=== PATIENT | female | born 1930 | race Caucasian/White ===

== ENCOUNTER 2017-01-21 22:23 | Inpatient (IN) ==
[2017-01-21] MEDS ORDERED: METOPROLOL TARTRATE 25 MG TABLET PO STA (23:30)
[2017-01-22 00:10] LABS: Basophils # 0.1 10*3/uL (0.0-0.2); Basophils % 1.2 % (0.0-0.8); Eosinophils # 0.2 10*3/uL (0.0-0.87); Eosinophils % 2.6 % (0.00-10.9); Hemoglobin 12.4 GM/DL (12.0-16.0); Immature Granulocytes % 0.3 %; Immature Granulocytes Absolute 0.02 #; Lymphocytes # 1.8 10*3/uL (1.4-4.0); Lymphocytes % 26.2 % (21.3-54.2); Mean Corpuscular HGB Conc 34.4 GM/DL (32-36); Mean Corpuscular Hemoglobin 32 PG (27-34); Mean Corpuscular Volume 92.3 FL (87-102); Mean Platelet Volume 9.3 FL (9.6-12.0); Monocytes # 0.6 10*3/uL (0.11-0.8); Monocytes % 8.8 % (1.7-12.7); Neutrophils # 4.2 10*3/uL (1.4-7.4); Neutrophils % 60.9 % (38.7-73.9); Platelet Count 284 T/CUMM (130-400)
[2017-01-22 00:29] LABS: Troponin I Only 0.653 NG/ML (0.00-0.045)
[2017-01-22 00:35] LABS: Albumin 3.4 G/DL (3.4-5.0); Bilirubin,Total 0.4 MG/DL (0.2-1.0); Calcium 9.2 MG/DL (8.5-10.1); Free T4 (Free Thyroxine) 1.21 NG/DL (0.76-1.46); Osmolality,Calculated 283.3 MOS/KG (273-304); Potassium 3.6 MMOL/L (3.5-5.1); Thyroid Stimulating Hormone 4.18 uIU/ml (0.358-3.74); Total Protein 6.9 G/DL (6.4-8.3)
[2017-01-22] MEDS ORDERED: ASPIRIN 325 MG TABLET PO STA (01:17)
[2017-01-22] MEDS ORDERED: MAGNESIUM SULF RIDER 4 GM in PREMIX 1 EACH IV PRN (01:34)
[2017-01-22] MEDS ORDERED: MORPHINE 2 MG/1 ML SYRINGE IV PRN (01:34)
[2017-01-22] MEDS ORDERED: ONDANSETRON 4 MG/2 ML VIAL IV PRN (01:34)
[2017-01-22] MEDS ORDERED: POTASSIUM CHLORIDE 20 MEQ TABLET PO PRN (01:34)
[2017-01-22] MEDS ORDERED: SODIUM CHLORIDE 0.9% 1,000 ML IV SCH (01:34)
[2017-01-22] MEDS ORDERED: MAGNESIUM SULF RIDER 2 GM in PREMIX 1 EACH IV PRN (01:34)
[2017-01-22] MEDS ORDERED: ASPIRIN 325 MG TABLET ONE (01:55)
[2017-01-22 03:39] LABS: Basophils # 0.1 10*3/uL (0.0-0.2); Basophils % 0.9 % (0.0-0.8); Eosinophils # 0.2 10*3/uL (0.0-0.87); Eosinophils % 2.6 % (0.00-10.9); Hematocrit 36.2 VOL% (35.7-47.0); Hemoglobin 12.1 GM/DL (12.0-16.0); Immature Granulocytes % 0.4 %; Immature Granulocytes Absolute 0.03 #; Lymphocytes # 2.5 10*3/uL (1.4-4.0); Lymphocytes % 32.8 % (21.3-54.2); Mean Corpuscular HGB Conc 33.4 GM/DL (32-36); Mean Corpuscular Hemoglobin 31 PG (27-34); Mean Corpuscular Volume 93.1 FL (87-102); Mean Platelet Volume 9.8 FL (9.6-12.0); Monocytes # 0.8 10*3/uL (0.11-0.8); Monocytes % 10.3 % (1.7-12.7); Neutrophils # 4.1 10*3/uL (1.4-7.4); Platelet Count 328 T/CUMM (130-400); Red Blood Count 3.89 MC/CUMM (3.8-5.5); Red Cell Distribution Width 14.2 % (9.3-17.3); White Blood Count 7.7 T/CUMM (4-12)
[2017-01-22 04:07] LABS: Albumin 3.6 G/DL (3.4-5.0); Bilirubin,Total 0.6 MG/DL (0.2-1.0); Calcium 9.4 MG/DL (8.5-10.1); Magnesium 2.1 MG/DL (1.8-2.4); Osmolality,Calculated 282.3 MOS/KG (273-304); Potassium 4.1 MMOL/L (3.5-5.1); Risk Ratio 4.56
[2017-01-22] MEDS: NITROGLYCERIN 2% OINT 1 INCH/GM PACK TOP SCH ×3 (06:17→17:57)
[2017-01-22] MEDS ORDERED: cloNIDine 0.1 MG TABLET PO PRN (08:02)
[2017-01-22] MEDS ORDERED: CARVEDILOL 6.25 MG TABLET PO SCH (09:00)
[2017-01-22] MEDS: ASPIRIN EC 81 MG TABLET PO SCH (09:30)
[2017-01-22] MEDS: hydroCHLOROthiazide 12.5 MG CAPSULE PO SCH (09:30)
[2017-01-22] MEDS: hydrALAZINE 25 MG TABLET PO SCH (09:30)
[2017-01-22] MEDS: PANTOPRAZOLE 40 MG TABLET PO SCH (09:30)
[2017-01-22] MEDS: MULTIVITAMIN (CENTRUM) TABLET PO SCH (09:30)
[2017-01-22] MEDS: ENOXAPARIN 40 MG/0.4 ML SYRINGE SUBCUT SCH (09:31)
[2017-01-22] MEDS: cloNIDine 0.1 MG TABLET PO SCH ×2 (09:38→21:18)
[2017-01-22] MEDS ORDERED: ATORVASTATIN 20 MG TABLET PO SCH (21:00)
[2017-01-22] MEDS ORDERED: METOPROLOL TARTRATE 50 MG TABLET PO SCH (21:00)
[2017-01-22] MEDS: DOCUSATE SODIUM 100 MG CAPSULE PO SCH (21:18)
[2017-01-23] MEDS: NITROGLYCERIN 2% OINT 1 INCH/GM PACK TOP SCH ×4 (00:21→17:55)
[2017-01-23 03:52] LABS: Basophils # 0.1 10*3/uL (0.0-0.2); Basophils % 1.2 % (0.0-0.8); Eosinophils # 0.2 10*3/uL (0.0-0.87); Eosinophils % 3.6 % (0.00-10.9); Hematocrit 31.1 VOL% (35.7-47.0); Hemoglobin 10.7 GM/DL (12.0-16.0); Immature Granulocytes % 0.2 %; Immature Granulocytes Absolute 0.01 #; Lymphocytes # 2.5 10*3/uL (1.4-4.0); Lymphocytes % 44.6 % (21.3-54.2); Mean Corpuscular HGB Conc 34.4 GM/DL (32-36); Mean Corpuscular Hemoglobin 32 PG (27-34); Mean Corpuscular Volume 93.4 FL (87-102); Mean Platelet Volume 10.1 FL (9.6-12.0); Monocytes # 0.6 10*3/uL (0.11-0.8); Monocytes % 9.9 % (1.7-12.7); Neutrophils # 2.3 10*3/uL (1.4-7.4); Neutrophils % 40.5 % (38.7-73.9); Platelet Count 275 T/CUMM (130-400); Red Blood Count 3.33 MC/CUMM (3.8-5.5); Red Cell Distribution Width 14.3 % (9.3-17.3); White Blood Count 5.6 T/CUMM (4-12)
[2017-01-23 04:33] LABS: Calcium 8.8 MG/DL (8.5-10.1); Magnesium 2.1 MG/DL (1.8-2.4); Osmolality,Calculated 286.1 MOS/KG (273-304); Potassium 3.9 MMOL/L (3.5-5.1)
[2017-01-23 05:15] LABS: Risk Ratio 4.7; VLDL CHOLESTEROL 28.8 MG/DL
[2017-01-23] MEDS: LEVOTHYROXINE 25 MCG TABLET PO SCH (06:06)
[2017-01-23] MEDS ORDERED: METOPROLOL TARTRATE 25 MG TABLET PO SCH (09:00)
[2017-01-23] MEDS: hydroCHLOROthiazide 12.5 MG CAPSULE PO SCH (09:16)
[2017-01-23] MEDS: MULTIVITAMIN (CENTRUM) TABLET PO SCH (09:17)
[2017-01-23] MEDS: ASPIRIN EC 81 MG TABLET PO SCH (09:19)
[2017-01-23] MEDS: PANTOPRAZOLE 40 MG TABLET PO SCH (09:19)
[2017-01-23] MEDS: ENOXAPARIN 40 MG/0.4 ML SYRINGE SUBCUT SCH (09:19)
[2017-01-23] MEDS: hydrALAZINE 25 MG TABLET PO SCH (09:19)
[2017-01-23] MEDS ORDERED: ATORVASTATIN 20 MG TABLET PO SCH (09:20)
[2017-01-23] MEDS: cloNIDine 0.1 MG TABLET PO SCH ×2 (09:23→20:51)
[2017-01-23] MEDS: DOCUSATE SODIUM 100 MG CAPSULE PO SCH (20:49)
[2017-01-23] MEDS: METOPROLOL TARTRATE 25 MG TABLET PO SCH (20:51)
[2017-01-24] MEDS: NITROGLYCERIN 2% OINT 1 INCH/GM PACK TOP SCH ×3 (02:06→13:14)
[2017-01-24 05:10] LABS: Basophils # 0.1 10*3/uL (0.0-0.2); Basophils % 1.1 % (0.0-0.8); Eosinophils # 0.3 10*3/uL (0.0-0.87); Eosinophils % 4.2 % (0.00-10.9); Hematocrit 31.7 VOL% (35.7-47.0); Hemoglobin 10.7 GM/DL (12.0-16.0); Immature Granulocytes % 0.3 %; Immature Granulocytes Absolute 0.02 #; Lymphocytes # 2.8 10*3/uL (1.4-4.0); Lymphocytes % 45.4 % (21.3-54.2); Mean Corpuscular HGB Conc 33.8 GM/DL (32-36); Mean Corpuscular Hemoglobin 32 PG (27-34); Mean Corpuscular Volume 93.5 FL (87-102); Monocytes # 0.6 10*3/uL (0.11-0.8); Monocytes % 9.4 % (1.7-12.7); Neutrophils # 2.4 10*3/uL (1.4-7.4); Neutrophils % 39.6 % (38.7-73.9); Platelet Count 267 T/CUMM (130-400); Red Blood Count 3.39 MC/CUMM (3.8-5.5); Red Cell Distribution Width 14.4 % (9.3-17.3); White Blood Count 6.1 T/CUMM (4-12)
[2017-01-24 05:44] LABS: Calcium 8.6 MG/DL (8.5-10.1); Magnesium 2.3 MG/DL (1.8-2.4); Osmolality,Calculated 286.1 MOS/KG (273-304); Potassium 4.1 MMOL/L (3.5-5.1)
[2017-01-24] MEDS: LEVOTHYROXINE 25 MCG TABLET PO SCH (06:18)
[2017-01-24] MEDS: PANTOPRAZOLE 40 MG TABLET PO SCH (08:19)
[2017-01-24] MEDS: MULTIVITAMIN (CENTRUM) TABLET PO SCH (08:19)
[2017-01-24] MEDS: cloNIDine 0.1 MG TABLET PO SCH (08:19)
[2017-01-24] MEDS: METOPROLOL TARTRATE 25 MG TABLET PO SCH (08:19)
[2017-01-24] MEDS: ASPIRIN EC 81 MG TABLET PO SCH (08:20)
[2017-01-24] MEDS: ENOXAPARIN 40 MG/0.4 ML SYRINGE SUBCUT SCH (08:20)
[2017-01-24] MEDS: hydroCHLOROthiazide 12.5 MG CAPSULE PO SCH (08:20)
[2017-01-24 14:33] VITALS: BP 125/44
== END 2017-01-24 16:17 | disposition home or self-care (01) | DRG 305 ==
LOC: EDUNIT# → EDBD → N.ED 22:23 → N.TELEN 01-22 01:17
PROVIDERS: ADMIT Internal Medicine Interventional Cardiology; ATTEND Internal Medicine Interventional Cardiology

== ENCOUNTER 2018-08-21 18:20 | Inpatient (IN) ==
[2018-08-21] MEDS ORDERED: ONDANSETRON 4 MG/2 ML VIAL IV STA (21:11)
[2018-08-21] MEDS ORDERED: HYDROmorphone 2 MG/1 ML VIAL IV ONE (21:11)
[2018-08-21] MEDS ORDERED: SODIUM CHLORIDE 0.9% 1,000 ML IV SCH (21:30)
[2018-08-21 22:19] LABS: Basophils # 0.1 10*3/uL (0.0-0.2); Basophils % 0.4 % (0.0-0.8); Eosinophils % 0.4 % (0.00-10.9); Hemoglobin 12.5 GM/DL (12.0-16.0); Immature Granulocytes % 0.7 %; Immature Granulocytes Absolute 0.08 #; Lymphocytes # 1.6 10*3/uL (1.4-4.0); Lymphocytes % 14.3 % (21.3-54.2); Mean Corpuscular HGB Conc 32.9 GM/DL (32-36); Mean Corpuscular Volume 96.4 FL (87-102); Mean Platelet Volume 9.9 FL (9.6-12.0); Monocytes % 5.9 % (1.7-12.7); Neutrophils % 78.3 % (38.7-73.9); Platelet Count 211 T/CUMM (130-400); Red Blood Count 3.94 MC/CUMM (3.8-5.5); Red Cell Distribution Width 13.5 % (9.3-17.3); White Blood Count 11.2 T/CUMM (4-12)
[2018-08-21 22:20] LABS: Apearance,Urine CLEAR (Clear); Bacteria,Urine Occasional /HPF (Few); Bilirubin,Urine Negative (Negative); Blood, Urine Negative (Negative); Glucose,Urine (UA) Negative (Negative); Hyaline Casts,Urine 1 /LPF (0-3); Ketones,Urine Negative (Negative); Nitrite,Urine Positive (Negative); Protein,Urine Negative; RBC,Urine 1 /HPF (0-4); Squamous Epithelial Cell,Urine Occasional /HPF (0-10); Urine Color Yellow (Yellow); Urine Specific Gravity 1.014 (1.001-1.035); Urine Urobilinogen < 2.0 EU/DL (0.2-1.0); WBC,Urine 12 /HPF (0-6)
[2018-08-21 22:37] LABS: Albumin 3.9 G/DL (3.4-5.0); Bilirubin,Total 0.5 MG/DL (0.2-1.0); Osmolality,Calculated 287.3 MOS/KG (273-304); Total Protein 7.5 G/DL (6.4-8.3)
[2018-08-21] MEDS ORDERED: DOCUSATE SODIUM 100 MG CAPSULE PO SCH (23:35)
[2018-08-21] MEDS ORDERED: ONDANSETRON 4 MG/2 ML VIAL IV PRN (23:35)
[2018-08-21] MEDS ORDERED: HYDROmorphone 2 MG/1 ML VIAL IV PRN (23:35)
[2018-08-21] MEDS ORDERED: ACETAMINOPHEN 325 MG TABLET PO PRN (23:35)
[2018-08-22] MEDS: ATORVASTATIN 40 MG TABLET PO SCH ×2 (00:09→21:30)
[2018-08-22] MEDS: OLMESARTAN 20 MG TABLET PO SCH ×3 (00:09→21:29)
[2018-08-22] MEDS: ASPIRIN 325 MG TABLET PO SCH ×2 (00:09→21:29)
[2018-08-22] MEDS: cloNIDine 0.1 MG TABLET PO SCH ×3 (00:20→21:29)
[2018-08-22] MEDS: METOPROLOL TARTRATE 25 MG TABLET PO SCH ×3 (00:21→21:28)
[2018-08-22 06:56] LABS: Calcium 8.5 MG/DL (8.5-10.1)
[2018-08-22] MEDS: LEVOTHYROXINE 25 MCG TABLET PO SCH (07:30)
[2018-08-22] MEDS: MULTIVITAMIN (CENTRUM) TABLET PO SCH (08:58)
[2018-08-22] MEDS ORDERED: hydroCHLOROthiazide 25 MG TABLET PO SCH (09:00)
[2018-08-22] MEDS: LINACLOTIDE 145 MCG CAPSULE PO SCH (09:06)
[2018-08-22] MEDS: PANTOPRAZOLE 40 MG TABLET PO SCH (11:29)
[2018-08-22] MEDS ORDERED: SODIUM CHLORIDE 0.9% 1,000 ML IV SCH (11:30)
[2018-08-22] MEDS: CIPROFLOXACIN INJ 400 MG in PREMIX 1 EACH IV SCH (12:48)
[2018-08-22] MEDS ORDERED: ZIPRASIDONE 20 MG/1 ML VIAL IM PRN (13:46)
[2018-08-22] MEDS ORDERED: TUBERCULIN SKIN TEST 0.1 ML SYRINGE INTRADERM ONE (16:37)
[2018-08-22] MEDS ORDERED: LACTULOSE 20 GM/30 ML UDCUP PO PRN (18:15)
[2018-08-22] MEDS: MELATONIN 3 MG TABLET PO SCH (21:27)
[2018-08-22] MEDS: DOCUSATE/SENNA 50-8.6 MG TABLET PO SCH (21:27)
[2018-08-23] MEDS: CIPROFLOXACIN INJ 400 MG in PREMIX 1 EACH IV SCH ×2 (00:02→13:52)
[2018-08-23 05:27] LABS: Basophils # 0.1 10*3/uL (0.0-0.2); Basophils % 0.7 % (0.0-0.8); Eosinophils # 0.3 10*3/uL (0.0-0.87); Eosinophils % 4.1 % (0.00-10.9); Hematocrit 32.5 VOL% (35.7-47.0); Hemoglobin 10.4 GM/DL (12.0-16.0); Immature Granulocytes % 0.3 %; Immature Granulocytes Absolute 0.02 #; Lymphocytes # 1.7 10*3/uL (1.4-4.0); Lymphocytes % 24.6 % (21.3-54.2); Mean Corpuscular Volume 99.1 FL (87-102); Mean Platelet Volume 9.3 FL (9.6-12.0); Monocytes % 8.4 % (1.7-12.7); Neutrophils % 61.9 % (38.7-73.9); Platelet Count 201 T/CUMM (130-400); Red Blood Count 3.28 MC/CUMM (3.8-5.5); Red Cell Distribution Width 13.7 % (9.3-17.3)
[2018-08-23 05:47] LABS: Calcium 8.2 MG/DL (8.5-10.1); Osmolality,Calculated 283.3 MOS/KG (273-304)
[2018-08-23] MEDS: LEVOTHYROXINE 25 MCG TABLET PO SCH (05:59)
[2018-08-23] MEDS: LINACLOTIDE 145 MCG CAPSULE PO SCH (08:44)
[2018-08-23] MEDS: cloNIDine 0.1 MG TABLET PO SCH ×2 (08:44→20:37)
[2018-08-23] MEDS: MULTIVITAMIN (CENTRUM) TABLET PO SCH (08:44)
[2018-08-23] MEDS: OLMESARTAN 20 MG TABLET PO SCH ×2 (08:45→20:34)
[2018-08-23] MEDS: DOCUSATE/SENNA 50-8.6 MG TABLET PO SCH ×2 (08:45→20:34)
[2018-08-23] MEDS: METOPROLOL TARTRATE 25 MG TABLET PO SCH ×2 (08:46→20:34)
[2018-08-23] MEDS: PANTOPRAZOLE 40 MG TABLET PO SCH (12:07)
[2018-08-23] MEDS ORDERED: ONDANSETRON ODT 4 MG TABLET PO PRN (16:27)
[2018-08-23] MEDS: MELATONIN 3 MG TABLET PO SCH (20:34)
[2018-08-23] MEDS: CIPROFLOXACIN 500 MG TABLET PO SCH (20:34)
[2018-08-23] MEDS: ASPIRIN 325 MG TABLET PO SCH (20:34)
[2018-08-23] MEDS: ATORVASTATIN 40 MG TABLET PO SCH (20:34)
[2018-08-24 02:23] LABS: Basophils % 0.6 % (0.0-0.8); Eosinophils # 0.3 10*3/uL (0.0-0.87); Eosinophils % 4.4 % (0.00-10.9); Hematocrit 31.1 VOL% (35.7-47.0); Hemoglobin 9.9 GM/DL (12.0-16.0); Immature Granulocytes % 0.3 %; Immature Granulocytes Absolute 0.02 #; Lymphocytes # 1.9 10*3/uL (1.4-4.0); Lymphocytes % 30.5 % (21.3-54.2); Mean Corpuscular HGB Conc 31.8 GM/DL (32-36); Mean Corpuscular Volume 97.8 FL (87-102); Mean Platelet Volume 9.2 FL (9.6-12.0); Monocytes % 9.7 % (1.7-12.7); Neutrophils % 54.5 % (38.7-73.9); Platelet Count 191 T/CUMM (130-400); Red Blood Count 3.18 MC/CUMM (3.8-5.5); Red Cell Distribution Width 13.6 % (9.3-17.3); White Blood Count 6.4 T/CUMM (4-12)
[2018-08-24 03:00] LABS: Calcium 8.4 MG/DL (8.5-10.1); Osmolality,Calculated 285.1 MOS/KG (273-304); Risk Ratio 2.92; Thyroid Stimulating Hormone 1.96 uIU/ml (0.358-3.74); VLDL CHOLESTEROL 26.4 MG/DL
[2018-08-24] MEDS: LEVOTHYROXINE 25 MCG TABLET PO SCH (06:12)
[2018-08-24] MEDS: DOCUSATE/SENNA 50-8.6 MG TABLET PO SCH ×2 (08:42→20:21)
[2018-08-24] MEDS: OLMESARTAN 20 MG TABLET PO SCH ×2 (08:42→20:22)
[2018-08-24] MEDS: METOPROLOL TARTRATE 25 MG TABLET PO SCH ×2 (08:42→20:19)
[2018-08-24] MEDS: CIPROFLOXACIN 500 MG TABLET PO SCH ×2 (08:42→20:22)
[2018-08-24] MEDS: MULTIVITAMIN (CENTRUM) TABLET PO SCH (08:43)
[2018-08-24] MEDS: cloNIDine 0.1 MG TABLET PO SCH ×2 (08:43→20:23)
[2018-08-24] MEDS: LINACLOTIDE 145 MCG CAPSULE PO SCH (10:07)
[2018-08-24] MEDS ORDERED: GLYCERIN ADULT SUPP RECTAL PRN (10:59)
[2018-08-24] MEDS: PANTOPRAZOLE 40 MG TABLET PO SCH (11:38)
[2018-08-24] MEDS: MELATONIN 3 MG TABLET PO SCH (20:20)
[2018-08-24] MEDS: ASPIRIN 325 MG TABLET PO SCH (20:22)
[2018-08-24] MEDS: ATORVASTATIN 40 MG TABLET PO SCH (20:23)
[2018-08-25] MEDS: LEVOTHYROXINE 25 MCG TABLET PO SCH (06:02)
[2018-08-25] MEDS: cloNIDine 0.1 MG TABLET PO SCH ×2 (09:05→21:38)
[2018-08-25] MEDS: MULTIVITAMIN (CENTRUM) TABLET PO SCH (09:06)
[2018-08-25] MEDS: OLMESARTAN 20 MG TABLET PO SCH ×2 (09:06→21:36)
[2018-08-25] MEDS: CIPROFLOXACIN 500 MG TABLET PO SCH ×2 (09:06→21:37)
[2018-08-25] MEDS: LINACLOTIDE 145 MCG CAPSULE PO SCH (09:06)
[2018-08-25] MEDS: DOCUSATE/SENNA 50-8.6 MG TABLET PO SCH ×2 (09:06→21:37)
[2018-08-25] MEDS: METOPROLOL TARTRATE 25 MG TABLET PO SCH ×2 (09:07→21:36)
[2018-08-25] MEDS: PANTOPRAZOLE 40 MG TABLET PO SCH (11:08)
[2018-08-25] MEDS: ASPIRIN 325 MG TABLET PO SCH (21:36)
[2018-08-25] MEDS: MELATONIN 3 MG TABLET PO SCH (21:37)
[2018-08-25] MEDS: ATORVASTATIN 40 MG TABLET PO SCH (21:37)
[2018-08-26] MEDS: LEVOTHYROXINE 25 MCG TABLET PO SCH (05:18)
[2018-08-26] MEDS: cloNIDine 0.1 MG TABLET PO SCH (09:18)
[2018-08-26] MEDS: METOPROLOL TARTRATE 25 MG TABLET PO SCH (09:50)
[2018-08-26] MEDS: MULTIVITAMIN (CENTRUM) TABLET PO SCH (09:50)
[2018-08-26] MEDS: CIPROFLOXACIN 500 MG TABLET PO SCH (09:50)
[2018-08-26] MEDS: LINACLOTIDE 145 MCG CAPSULE PO SCH (09:50)
[2018-08-26] MEDS: OLMESARTAN 20 MG TABLET PO SCH (11:35)
[2018-08-26] MEDS: PANTOPRAZOLE 40 MG TABLET PO SCH (11:35)
[2018-08-26] MEDS: DOCUSATE/SENNA 50-8.6 MG TABLET PO SCH (11:36)
[2018-08-26 13:01] VITALS: BP 123/47
== END 2018-08-26 13:00 | DRG 536 ==
LOC: N.ED 18:20 → SUATTDRO 21:52 → N.EDINP 21:52 → N.3E 22:22 → N.4E 08-23 15:06
PROVIDERS: ADMIT Internal Medicine; ATTEND Emergency Medicine